=== PATIENT | female | born 1960 | race Caucasian/White ===

== ENCOUNTER 2022-08-09 09:38 | Emergency (ER) | payer BC ==
[~2022-08-09] VITALS: Ht 170.2 cm; Wt 62.7 kg
[2022-08-09 09:49] VITALS: TEMP 97.6
[2022-08-09] MEDS ORDERED: CRUTCHES MC ×2 (10:21→11:31)
[2022-08-09] MEDS ORDERED: NORCO 325 MG-51 TAB PO (12:23)
[2022-08-09 12:43] VITALS: BP 161/86; PULSE 80
== END 2022-08-09 12:43 | disposition home or self-care (01) ==
LOC: COL.ER 09:38
DX: S82.852A Displaced trimalleolar fracture of left lower leg, initial encounter for closed fracture (principal); Z88.5 Allergy status to narcotic agent; W10.2XXA Fall (on)(from) incline, initial encounter; X50.1XXA Overexertion from prolonged static or awkward postures, initial encounter; Y93.89 Activity, other specified
CPT/HCPCS: J2704; J3010; J7030